=== PATIENT | female | born 1950 | race Caucasian/White ===

== ENCOUNTER 2020-06-28 22:44 | Emergency (ER) | payer MEDICARE ==
--- NOTE | 2020-06-28 22:53 | ED Physician Documentation ---
History of Present Illness - Stated complaint Stated Complaint: AB PX - History obtained from History obtained from: Patient - Additonal information Additional information: The patient is a 70-year-old female presents with epigastric and right upper quadrant pain. She reports she has a history of gallstones. She denies any jaundice-like symptoms or fevers reports nausea and vomiting and discomfort. Review of Systems Constitutional: reports: Reviewed and negative Eyes: reports: Reviewed and negative Ears: reports: Reviewed and negative Nose: reports: Reviewed and negative Throat: reports: Reviewed and negative Cardiac: reports: Reviewed and negative Respiratory: reports: Reviewed and negative GI: reports: Abdominal Pain, Nausea, Vomiting : reports: Reviewed and negative Skin: reports: Reviewed and negative Musculoskeletal: reports: Reviewed and negative Neurologic: reports: Reviewed and negative Psychiatric: reports: Reviewed and negative Endocrine: reports: Reviewed and negative Immunocompromised: reports: Reviewed and negative PD PAST MEDICAL HISTORY - Present Medications Home Medications: Ambulatory Orders Medication Instructions Recorded Confirmed Hydrocodone/Acetaminophen [[place] 1 each PO Q8HR PRN #7 tablet 06/29/20 5-325 Tablet] Ondansetron Odt [Zofran Odt] 4 mg TL Q6H PRN #10 tablet 06/29/20 - Allergies Allergies/Adverse Reactions: Allergies Allergy/AdvReac Type Severity Reaction Status Date / Time No Known Drug Allergies Allergy Verified 06/28/20 22:58 PD ED PE NORMAL - Vitals Vital signs reviewed: Yes - General General: Alert and oriented X 3, No acute distress, Well developed/nourished - HEENT HEENT: PERRL, Moist mucous membranes, Pharynx benign - Neck Neck: Supple, no meningeal sign, No adenopathy - Cardiac Cardiac: RRR, No murmur, Strong equal pulses - Respiratory Respiratory: No respiratory distress, Clear bilaterally - Abdomen Abdomen: Normal bowel sounds, Soft, Other (Tenderness in the right upper quadrant, positive Samson sign tenderness in the epigastrium no bruising noted no midline abdominal pulsatile massNo peritoneal signs currently) - Derm Derm: Warm and dry - Extremities Extremities: No deformity - Neuro Neuro: Alert and oriented X 3 - Psych Psych: Normal mood, Normal affect Results - Vitals Vitals: Vital Signs - 24 hr 06/28/20 06/29/20 06/29/20 22:55 01:10 03:05 Temperature 36.5 C 36.6 C Heart Rate 56 L 59 L 51 L Respiratory 18 15 16 Rate Blood Pressure 139/79 H 128/84 H 121/76 O2 Saturation 96 98 95 Oxygen O2 Source Room air - Labs Labs: Laboratory Tests 06/28/20 06/28/20 06/28/20 22:56 23:37 23:37 WBC 8.4 RBC 4.75 Hgb 15.0 Hct 45.4 MCV 95.6 MCH 31.6 H MCHC 33.0 RDW 12.2 Plt Count 208 MPV 10.7 Neut # (Auto) 6.8 H Lymph # (Auto) 1.0 L [place] # (Auto) 0.5 Eos # (Auto) 0.0 Baso # (Auto) 0.0 Absolute Nucleated RBC 0.00 Nucleated RBC % 0.0 PT 12.0 INR 1.1 APTT 25.6 Sodium Potassium Chloride Carbon Dioxide Anion Gap BUN Creatinine Estimated GFR (MDRD) Glucose Lactic Acid Calcium Total Bilirubin AST ALT Alkaline Phosphatase Total Creatine Kinase Total Protein Albumin Globulin Albumin/Globulin Ratio Lipase Urine Color YELLOW Urine Clarity CLEAR Urine pH 7.5 Ur Specific [place] 1.020 Urine Protein NEGATIVE Urine Glucose (UA) NEGATIVE Urine Ketones NEGATIVE Urine Occult Blood TRACE-INTA Urine Nitrite NEGATIVE Urine Bilirubin NEGATIVE Urine Urobilinogen 1 (NORMAL) Ur Leukocyte Esterase NEGATIVE Ur Microscopic Review NOT INDICATED Urine Culture Comments NOT INDICATED 06/28/20 06/28/20 23:37 23:55 WBC RBC Hgb Hct MCV MCH MCHC RDW Plt Count MPV Neut # (Auto) Lymph # (Auto) [place] # (Auto) Eos # (Auto) Baso # (Auto) Absolute Nucleated RBC Nucleated RBC % PT INR APTT Sodium 139 Potassium 4.1 Chloride 105 Carbon Dioxide 24 Anion Gap 10.0 BUN 16 Creatinine 0.7 Estimated GFR (MDRD) 83 L Glucose 189 H Lactic Acid 1.5 Calcium 9.6 Total Bilirubin 1.6 H AST 359 H ALT 239 H Alkaline Phosphatase 60 Total Creatine Kinase 47 Total Protein 7.0 Albumin 4.4 Globulin 2.6 Albumin/Globulin Ratio 1.7 Lipase 35 Urine Color Urine Clarity Urine pH Ur Specific Brandon Urine Protein Urine Glucose (UA) Urine Ketones Urine Occult Blood Urine Nitrite Urine Bilirubin Urine Urobilinogen Ur Leukocyte Esterase Ur Microscopic Review Urine Culture Comments PD MEDICAL DECISION MAKING - ED course Complexity details: reviewed results, re-evaluated patient, considered differential, d/w patient, d/w family ED course: 7-year-old female with history and exam concerning for cholecystitis or pancreatitis her liver enzymes are elevated her bilirubin is mildly elevated as well CT scan shows gallstones but no Obstruction.Patient's pain is improved after IV fluids and analgesics and antiemetics.Her preliminary impression shows small bowel air-fluid levels which could be due to enteritis or dysmotility intermediate density stone sludge or polyp in the gallbladder.Right upper quadrant ultrasound preliminary radiology interpretation shows cholelithiasis, large nonmobile neck stone gallbladder distention, irregular polyp versus stone versus tumefactive sludge versus neoplasm projecting into gallbladder lumen from the fundus with focal gallbladder wall thickening borderline hepatomegaly mild hepatic steatosis ptosis and nonobstructing right renal stone. Patient family were updated she is asymptomatic now she would like to be discharged home she is given referral for a local primary care provider and general surgery she should follow-up this week. Departure - Departure Disposition: 01 Home, Self Care Clinical Impression: Elevated liver enzymes, Hepatic steatosis Abdominal pain Qualifiers: Abdominal location: unspecified location Qualified Code(s): R10.9 - Unspecified abdominal pain Cholelithiasis Qualifiers: Cholelithiasis location: other site Biliary obstruction: without biliary obstruction Qualified Code(s): K80.80 - Other cholelithiasis without obstruction Condition: Stable Instructions: ED Gallstone W Biliary Colic Follow-Up: Hernan Marie MD [Provider Admit Priv/Credential] - Tomorrow Lucian Blancas MD [Provider Admit Priv/Credential] - Tomorrow Prescriptions: Hydrocodone/Acetaminophen [[place] 5-325 Tablet] 1 each PO Q8HR PRN #7 tablet PRN Reason: Pain Ondansetron Odt [Zofran Odt] 4 mg TL Q6H PRN #10 tablet PRN Reason: Nausea / Vomiting Comments: Follow-up with the primary care provider and general surgery next week please. Discharge Date/Time: 06/29/20 03:24
[2020-06-28] MEDS ORDERED: SODIUM CHLORIDE 0.9% 1,000 ML IV STA (23:18)
[2020-06-28] MEDS ORDERED: ONDANSETRON 4 MG/2 ML VIAL IVP STA (23:18)
[2020-06-28] MEDS ORDERED: MORPHINE 2 MG/ML CARPUJECT IVP STA (23:18)
[2020-06-28] MEDS ORDERED: IOVERSOL 320 100 ML VIAL IVP ONE (23:42)
[2020-06-28 23:52] LABS: BASOPHILS % (AUTO) 0.5 %; EOSINOPHILS % (AUTO) 0.1 %; LYMPHOCYTES % (AUTO) 11.9 %; MEAN CORPUSCULAR HEMOGLOBIN 31.6 pg (27.0-31.0); MEAN CORPUSCULAR VOLUME 95.6 fL (81.0-99.0); MEAN PLATELET VOLUME 10.7 fL (7.9-10.8); MONOCYTES # (AUTO) 0.5 10^3/uL (0.0-1.0); NEUTROPHILS # (AUTO) 6.8 10^3/uL (1.5-6.6); NEUTROPHILS % (AUTO) 81.3 %; PLT - PLATELET COUNT 208 10^3/uL (130-450); RED BLOOD COUNT 4.75 10^6/uL (4.20-5.40); RED CELL DISTRIBUTION WIDTH 12.2 % (12.0-15.0); WHITE BLOOD COUNT 8.4 x10^3/uL (4.8-10.8)
[2020-06-28 23:53] LABS: BILIRUBIN,URINE NEGATIVE (NEGATIVE); GLUCOSE, URINE (UA) NEGATIVE (NEGATIVE); KETONES,URINE (UA) NEGATIVE (NEGATIVE); LEUKOCYTE ESTERASE, URINE NEGATIVE (NEGATIVE); NITRITE,URINE NEGATIVE (NEGATIVE); OCCULT BLOOD,URINE TRACE-INTA (NEGATIVE); PH,URINE 7.5 PH (5.0-7.5); PROTEIN,URINE NEGATIVE (NEGATIVE); UROBILINOGEN,URINE 1 (NORMAL) E.U./dL (NORMAL)
[2020-06-28 23:54] LABS: CLARITY,URINE CLEAR (CLEAR)
[2020-06-28 23:58] LABS: INR 1.1 (0.8-1.2)
[2020-06-29 00:05] LABS: PARTIAL THROMBOPLASTIN TIME 25.6 secs (24.9-33.3)
[2020-06-29 00:09] LABS: ALBUMIN 4.4 g/dL (3.2-5.5); ALBUMIN/GLOBULIN RATIO 1.7 (1.0-2.2); BILIRUBIN,TOTAL 1.6 mg/dL (0.2-1.0); CALCIUM 9.6 mg/dL (8.5-10.3); CREATININE 0.7 mg/dL (0.4-1.0)
[2020-06-29] MEDS ORDERED: IOVERSOL 320 100 ML VIAL IVP ONE (00:47)
[2020-06-29 03:06] VITALS: BP 121/76
--- NOTE | 2020-06-29 10:20 | CT Report ---
PROCEDURE: Abdomen/Pelvis W INDICATIONS: abd pain CONTRAST: IV CONTRAST: Optiray 320 ml: 100 PO CONTRAST: *NO PO CONTRAST TECHNIQUE: After the administration of nonionic IV contrast, 5 mm thick sections acquired from the diaphragms to the symphysis. 5 mm thick coronal and sagittal reformats were acquired. For radiation dose reducti on, the following was used: automated exposure control, adjustment of mA and/or kV according to malcom ent size. COMPARISON: Correlation is made with the accompanying ultrasound, 06/29/2020 FINDINGS: Image quality: Excellent. ABDOMEN: Lung bases: Lung bases are clear. Heart size is normal. A small hiatal hernia is incidentally note d. Solid organs: Liver and spleen are normal in size and enhancement. Gallbladder demonstrates layerin g gallstones Biliary system is non dilated. Pancreas enhances normally. No adrenal nodules. The right kidney is mildly atrophic and demonstrates areas of cortical scarring. No suspicious masses are seen involving either kidney. There is no hydronephrosis. Right kidney stones are seen, which me asure up to 4 mm. Peritoneum and bowel: Bowel loops demonstrate normal wall thickness and caliber. No free fluid or a ir. A normal appendix is incidentally noted. Nodes and vessels: No retroperitoneal or mesenteric adenopathy by size criteria. Aorta and inferior vena cava are normal in size. 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 Miscellaneous: No ventral hernias. PELVIS: Genitourinary: Bladder wall thickness is normal. There is a 2.4 cm uterine fibroid seen posteriorly . The uterus otherwise demonstrates an unremarkable appearance for age. No adnexal masses are seen. Miscellaneous: No inguinal hernias or adenopathy. Bones: No suspicious bony lesions. No vertebral body compression fractures. Mild levoconvex scolio tic curvature is seen. Age-appropriate degenerative changes are seen. IMPRESSION: Gallstones are seen, without additional gallbladder abnormality. No additional potential cause of acute abdominal pain can be seen. Mildly atrophic right kidney, with areas of cortical scarring. Nonobstructing right-sided kidney st ones are seen. Incidental note is made of: Small hiatal hernia Normal appendix 2.4 cm uterine fibroid Note: No significant discrepancy from the preliminary report. Reviewed by: Navdeep Shin MD on 06/29/2020 9:18 AM AKDT Approved by: Navdeep Shin MD on 06/29/2020 9:18 AM ADRIANA Station ID: [id number]
--- NOTE | 2020-06-29 10:32 | Ultrasound Report ---
PROCEDURE: Abdomen Limited INDICATIONS: ruq pain TECHNIQUE: Real-time focused scanning was performed of the abdomen, with image documentation. COMPARISON: Correlation is made with the accompanying abdomen and pelvis CT, 06/29/2020 FINDINGS: There is a nonmobile gallstone seen within the gallbladder neck that measures 3.4 cm. With in the fundus, there is a likely nonmobile gallstone that measures up to 13 mm. However, differential diagnosis includes a large polyp. The gallbladder wall is thickened, measuring 5 to 6 mm. No specifi c pericholecystic fluid is seen. The sonographic Samson sign is negative. The common bile duct measures at the upper limits of normal at 7 mm. The pancreas is overall not well seen, yet its visualized portion is normal. The liver demonstrates prominent size. The liver demonstrates increased echogenicity, which limits ul trasound sensitivity for detection of masses. The right kidney demonstrates a nonobstructing stone inferiorly measuring 7 mm. This study is overall limited by bowel gas. IMPRESSION: Gallstones are seen, including a nonmobile gallstone within the gallbladder neck. The gallbladder wal l is thickened measuring 5 to 6 mm. These findings are suspicious for acute cholecystitis. However, n o pericholecystic fluid is seen and the sonographic Samson's sign is negative. Please correlate with patient presentation, clinical examination findings, and laboratory values, as appropriate. Gallstone versus polyp versus tumefactive sludge within the gallbladder fundus. Prominent, fatty liver. Nonobstructing right-sided kidney stone noted. Note: No significant discrepancy from the preliminary report. Reviewed by: Navdeep Shin MD on 06/29/2020 9:31 AM ADRIANA Approved by: Navdeep Shin MD on 06/29/2020 9:31 AM ADRIANA Station ID: [id number]
== END 2020-06-29 03:24 | disposition home or self-care (01) ==
LOC: ED 22:44
DX: K80.20 Calculus of gallbladder without cholecystitis without obstruction (principal); K76.0 Fatty (change of) liver, not elsewhere classified; N20.0 Calculus of kidney; R74.8 Abnormal levels of other serum enzymes
CPT/HCPCS: 36415; 74177; 76705; 80053; 81003; 82550; 83605; 83690; 85025; 85610; 85730; 96361; 96374; 96375; 99283; 99284; Q9967; 81001; 87086

== ENCOUNTER 2023-03-26 22:25 | Emergency (ER) | payer MEDICARE ==
--- NOTE | 2023-03-27 01:13 | ED Physician Documentation ---
History of Present Illness - Stated complaint Stated Complaint: R KNEE SWELLING - Chief complaint Chief Complaint: Trauma Ext - History obtained from History obtained from: Patient - Additonal information Additional information: Patient is a 72-year-old female with a history of gout presenting for evaluation of feeling fullness in her right knee earlier today. She denies any known trauma or injury but has been out in the garden working more. She did recently return from a trip to [place] 3 weeks ago. She has no history of PE or DVT and is not on any blood thinners. She called the [place] advice line and was advised to come to the emergency department for evaluation to rule out a DVT. Review of Systems Constitutional: denies: Fever Cardiac: denies: Chest pain / pressure Respiratory: denies: Dyspnea GI: denies: Abdominal Pain Musculoskeletal: reports: Extremity pain Neurologic: denies: Headache PD PAST MEDICAL HISTORY - Past Medical History Cardiovascular: None Respiratory: Sleep apnea Neuro: None Endocrine/Autoimmune: None GI: None, Cholelithiasis RESIDENTIAL CARPET INSTALLER: None : None HEENT: Dental implants Psych: None Musculoskeletal: Other Derm: Herpes zoster - Past Surgical History Past Surgical History: No - Present Medications Home Medications: Ambulatory Orders Medication Instructions Recorded Confirmed Hydrocodone/Acetaminophen [[place] 1 each PO Q8HR PRN #7 tablet 06/29/20 5-325 Tablet] Ondansetron Odt [Zofran Odt] 4 mg TL Q6H PRN #10 tablet 06/29/20 - Allergies Allergies/Adverse Reactions: Allergies Allergy/AdvReac Type Severity Reaction Status Date / Time No Known Drug Allergies Allergy Verified 03/26/23 22:38 - Social History Does the pt smoke?: No Smoking Status: Never smoker Does the pt drink ETOH?: Yes Does the pt have substance abuse?: No - Immunizations Immunizations are current?: No - POLST Patient has POLST: No PD ED PE NORMAL - General General: Alert and oriented X 3, No acute distress, Well developed/nourished - HEENT HEENT: Atraumatic - Neck Neck: Supple, no meningeal sign - Cardiac Cardiac: RRR, Strong equal pulses - Respiratory Respiratory: No respiratory distress, Clear bilaterally - Derm Derm: Warm and dry - Extremities Extremities: No deformity, No tenderness to palpate, Normal ROM s pain, No calf tenderness / cord, Other (Mild swelling to right knee) Results - Vitals Vitals: Vital Signs - 24 hr 03/26/23 03/27/23 22:33 01:16 Temperature 36.7 C Heart Rate 49 L 57 L Respiratory 17 18 Rate Blood Pressure 133/82 H 121/75 O2 Saturation 99 95 Oxygen O2 Source Room air - Labs Labs: Laboratory Tests 03/27/23 00:17 D-Dimer 263.8 H PD Medical Decision Making - ED course ED course: Patient presenting for evaluation of discomfort noted to right knee and swelling.No known injury. She has recently traveled to [place]. No known history of DVT or PE. Ultrasound is not available at this time of night. A D-dimer was obtained which is slightly above the normal range. We discussed options. Discussed that this could just be related to age but that given recent travel and unclear alternate etiology that ultrasound would be reasonable. Patient is agreeable to returning during daytime hours when ultrasound is readily avai lable. She declines dose of anticoagulation this evening. We also discussed x- ray which was ordered but due to other traumas it was delayed and patient would like to hold off on x-ray at this time. She is ambulatory without difficulty. Declines need for pain medication. Departure - Departure Disposition: 01 Home, Self Care Clinical Impression: Right knee pain Condition: Stable Comments: Because of your recent travel and the location of your pain we wanted to check for a blood clot. Your D-dimer which is a marker that can be elevated in blood clots was slightly above the normal range. Please return to the emergency department at 9:00 in the morning on Tuesday for an ultrasound. You have opted to not have an x-ray done also this evening which is understandable. You may want to reconsider having an x-ray in the morning when you return for an ultrasound. Please return to the emergency department if you develop any worsening symptoms Discharge Date/Time: 03/27/23 01:17
[2023-03-27 01:18] VITALS: BP 121/75
== END 2023-03-27 01:17 | disposition home or self-care (01) ==
LOC: ED 22:25
DX: M25.561 Pain in right knee (principal)
CPT/HCPCS: 36415; 85379; 99283; 99284

== ENCOUNTER 2023-03-27 09:57 | Emergency (ER) | payer MEDICARE ==
--- NOTE | 2023-03-27 10:58 | Ultrasound Report ---
PROCEDURE: Duplex Ext Veins Right INDICATIONS: swelling and pain TECHNIQUE: Real-time imaging, as well as color and pulse Doppler interrogation, were performed of the lower extr emity deep veins from the inguinal ligament to the popliteal fossa. COMPARISON: None. FINDINGS: The deep veins are normally compressible, and free of intraluminal thrombus. Color and pu lse Doppler demonstrate normal phasic intraluminal flow. There is normal augmentation response to di stal compression maneuver. IMPRESSION: No evidence of right lower extremity DVT. Reviewed by: Brainda Velasquez MD on 03/27/2023 10:57 AM PDT Approved by: Brianda Velasquez MD on 03/27/2023 10:57 AM PDT Station ID: [id number]
--- NOTE | 2023-03-27 11:12 | ED Physician Documentation ---
PD HPI LOWER EXT INJURY - Stated complaint Stated Complaint: ULTRASOUND/RT KNEE PAIN - Chief complaint Chief Complaint: Ext Problem - History obtained from History obtained from: Patient - Additional information Additional information: She has had some swelling above the patella anteriorly to the right knee for the last couple of days. She was walking a lot recently and doing more gardening. The advice line told her to come in and rule out DVT. She was seen last night by my partner who had a D-dimer ordered which was mildly elevated and advised to return in the morning for ultrasonography. PD PAST MEDICAL HISTORY - Past Medical History Past Medical History: Yes Cardiovascular: None Respiratory: Sleep apnea Neuro: None Endocrine/Autoimmune: None GI: None, Cholelithiasis SILVER SERVICE WAITER: None : None HEENT: Dental implants Psych: None Musculoskeletal: Other Derm: Herpes zoster - Past Surgical History Past Surgical History: No - Present Medications Home Medications: Ambulatory Orders Medication Instructions Recorded Confirmed allopurinoL [Zyloprim] 100 mg PO DAILY 03/27/23 03/27/23 - Allergies Allergies/Adverse Reactions: Allergies Allergy/AdvReac Type Severity Reaction Status Date / Time No Known Drug Allergies Allergy Verified 03/27/23 10:04 - Social History Does the pt smoke?: No Smoking Status: Never smoker Does the pt drink ETOH?: Yes Does the pt have substance abuse?: No - Immunizations Immunizations are current?: No - POLST Patient has POLST: No PD ED PE NORMAL - Vitals Vital signs reviewed: Yes - General General: Alert and oriented X 3, No acute distress - Extremities Extremities: Other (She has a small suprapatellar effusion. Full range of motion of the right knee. No tenderness.) - Neuro Neuro: Alert and oriented X 3, Normal speech Results - Vitals Vitals: Vital Signs - 24 hr 03/27/23 10:00 Temperature 36.4 C L Heart Rate 50 L Respiratory 15 Rate Blood Pressure 128/67 O2 Saturation 96 Oxygen O2 Source Room air - Rads (name of study) Right leg DVT ultrasound Relevant Findings:: Prelim report reviewed (Negative) Departure - Departure Disposition: 01 Home, Self Care Clinical Impression: Suprapatellar effusion of knee Condition: Good Record reviewed to determine appropriate education?: Yes Instructions: ED Effusion Knee Comments: You can talk with your physician about physical therapy. Gentle stretching and ice is also appropriate. Return for new or worsening symptoms.
[2023-03-27 11:23] VITALS: BP 124/73
== END 2023-03-27 11:21 | disposition home or self-care (01) ==
LOC: ED 09:57
DX: M25.461 Effusion, right knee (principal)
CPT/HCPCS: 99283; 99284

== ENCOUNTER 2023-05-02 19:44 | Emergency (ER) | payer MEDICARE ==
[2023-05-02 19:49] VITALS: BP 140/76
[2023-05-02] MEDS ORDERED: BACITRACIN ZINC OINT 1 PACKET TOP STA (20:45)
--- NOTE | 2023-05-02 21:08 | ED Physician Documentation ---
History of Present Illness - Stated complaint Stated Complaint: L FINGER LAC - Chief complaint Chief Complaint: Laceration - Additonal information Additional information: 72-year-old male here for a left fingertip laceration sustained when cutting parsley. Tetanus is up-to-date. [id number]. Review of Systems Skin: reports: Laceration (s) PD PAST MEDICAL HISTORY - Past Medical History Cardiovascular: None Respiratory: Sleep apnea Neuro: None Endocrine/Autoimmune: None GI: None, Cholelithiasis WOUND CARE TECHNICIAN: None : None HEENT: Dental implants Psych: None Musculoskeletal: Other Derm: Herpes zoster - Past Surgical History Past Surgical History: No - Present Medications Home Medications: Ambulatory Orders Medication Instructions Recorded Confirmed allopurinoL [Zyloprim] 100 mg PO DAILY 03/27/23 03/27/23 - Allergies Allergies/Adverse Reactions: Allergies Allergy/AdvReac Type Severity Reaction Status Date / Time No Known Drug Allergies Allergy Verified 05/02/23 19:46 - Social History Does the pt smoke?: No Smoking Status: Never smoker Does the pt drink ETOH?: Yes Does the pt have substance abuse?: No - Immunizations Immunizations are current?: No - POLST Patient has POLST: No PD ED PE EXPANDED - Extremities Extremities: Left finger(s) (index finger 0.5 cm partial amputation angulated through nail bed. ) Results - Vitals Vitals: Vital Signs - 24 hr 05/02/23 19:46 Temperature 36.5 C Heart Rate 50 L Respiratory 16 Rate Blood Pressure 140/76 H O2 Saturation 96 Oxygen O2 Source Room air PD Medical Decision Making - ED course Complexity details: d/w patient ED course: 72-year-old female with up-to-date tetanus presents with a partial distal left index finger tip amputation after cutting partially. Not amenable to primary closure. Hemostasis was achieved with Surgifoam. Routine dressing applied. Routine wound care and usual emergent return precautions discussed. Departure - Departure Disposition: 01 Home, Self Care Clinical Impression: Finger laceration Qualifiers: Encounter type: initial encounter Finger: index finger Damage to nail status: with damage Foreign body presence: without foreign body Laterality: left Qualified Code(s): S61.311A - Laceration without foreign body of left index finger with damage to nail, initial encounter Comments: You have a partial fingertip amputation that we could not close with suturing. We placed a product over the wound called Surgifoam which will help create a clot. 24 hours can gently remove the dressing. The Surgifoam should remain in place for the next several days. As it dries away can simply be trimmed off. Once you have a scab on the wound you can apply bacitracin. Will take several weeks for this wound to heal. I recommend you take Tylenol and ibuprofen [id number] for discomfort. Return to the ER if you have any concerns of infection such as fevers, redness or milky drainage
== END 2023-05-02 21:24 | disposition home or self-care (01) ==
LOC: ED 19:44
DX: S61.311A Laceration without foreign body of left index finger with damage to nail, initial encounter (principal); W45.8XXA Other foreign body or object entering through skin, initial encounter; Y93.G1 Activity, food preparation and clean up
CPT/HCPCS: 99282; 99283; A9270